=== PATIENT | female | born 1985 | race Caucasian/White ===

== ENCOUNTER 2017-05-07 17:08 | Emergency (ER) | payer OTHER ==
[~2017-05-07 17:08] MED LIST: AMOXICILLIN875 MG PO; CLINDAMYCIN HC300 MG PO; IBUPROFEN PO; IBUPROFEN800 MG PO; NO MEDICATIONS; OMNICEF PO; POLYTRIM O10 ML OPTH OD; ROBAXIN 750750 M1 PO; TYLENOL #3 PO; VOLTAREN75 MG PO; ZOVIRAX800 MG
[2017-05-07] MEDS ORDERED: ZYRTEC PO (17:11)
== END 2017-05-07 18:03 | disposition home or self-care (01) ==
LOC: SED 17:08
DX: L50.0 Allergic urticaria (principal); F17.210 Nicotine dependence, cigarettes, uncomplicated; Z88.1 Allergy status to other antibiotic agents
CPT/HCPCS: 99282